=== PATIENT | female | born 1995 | race Two or more races ===

== ENCOUNTER 2020-03-22 06:30 | Emergency (ER) | payer BC ==
[~2020-03-22] VITALS: Ht 167.6 cm; Wt 117.0 kg
[2020-03-22 07:19] LABS: BASOPHILS # (AUTO) 0.1 X10'3 (0-0.2); BASOPHILS % (AUTO) 0.4 % (0-1); EOSINOPHILS # (AUTO) 0.2 X10'3 (0-0.9); EOSINOPHILS % (AUTO) 1.1 % (0-6); HEMATOCRIT 40.4 % (35.0-45.0); HEMOGLOBIN 13.7 g/dl (12.0-16.0); LYMPHOCYTES # (AUTO) 2.2 X10'3 (1.1-4.8); LYMPHOCYTES % (AUTO) 14.9 % (21-51); MEAN CORPUSCULAR HEMOGLOBIN 29.1 PG (27.0-31.0); MEAN CORPUSCULAR HGB CONC 33.9 g/dL (33.0-36.5); MEAN PLATELET VOLUME 8.7 FL (7.4-10.4); MONOCYTES # (AUTO) 1.2 X10'3 (0-0.9); NEUTROPHILS % (AUTO) 75.6 % (42-75); PLATELET COUNT 298 X10'3 (140-440); RED CELL DISTRIBUTION WIDTH 13.4 % (11.5-14.5); WHITE BLOOD COUNT 14.6 X10'3 (4.5-11.0)
[2020-03-22 07:23] LABS: CLARITY,URINE CLEAR (Clear); COLOR,URINE YELLOW (Yellow); GLUCOSE, URINE NEGATIVE (Neg); KETONES,URINE NEGATIVE (Neg); LEUKOCYTE ESTERASE ,URINE NEGATIVE (Neg); NITRITES, URINE NEGATIVE (Neg); OCCULT BLOOD,URINE MODERATE (Neg); PH,URINE 5.5 (4.8-8.0); PROTEIN,URINE NEGATIVE (Neg); UROBILINOGEN,URINE 0.2 E.U/dL (0.2-1.0)
[2020-03-22 07:24] LABS: URINE HCG NEGATIVE (NEG)
[2020-03-22 07:25] LABS: UA COLLECTION TYPE CLN CATCH MIDSTREAM
[2020-03-22 07:42] LABS: BACTERIA,URINE NONE SEEN /HPF (Neg); SQUAMOUS EPITHELIAL CELL,UR FEW /LPF (FEW); WBC,URINE 0-4 /HPF (0-4)
[2020-03-22 07:44] LABS: ALANINE AMINOTRANSFERASE 52 U/L (12-78); ALBUMIN 3.6 G/DL (3.4-5.0); ALBUMIN/GLOBULIN RATIO 0.8 (1.1-1.5); ALKALINE PHOSPHATASE 80 IU/L (46-116); ANION GAP 10 (8-16); ASPARTATE AMINO TRANSFERASE 22 U/L (10-37); BILIRUBIN,TOTAL 0.6 MG/DL (0.1-1.0); BLOOD UREA NITROGEN 10 MG/DL (7-18); BUN/CREATININE RATIO 14.5 (6.6-38.0); CALCIUM 8.5 MG/DL (8.5-10.1); CHLORIDE 105 MMOL/L (99-107); CREATININE 0.69 MG/DL (0.40-0.90); GLUCOSE 114 MG/DL (70-104); LIPASE 93 U/L (73-393); POTASSIUM 3.5 MMOL/L (3.5-5.1); SODIUM 139 MMOL/L (135-145); TOTAL CARBON DIOXIDE 23.7 MMOL/L (24-32); TOTAL PROTEIN 7.9 G/DL (6.4-8.2); eGFR > 90 ML/MIN
--- NOTE | 2020-03-22 09:04 | NUR ---
notified dr solares if we can move pt to overflow rehanger room for pelivic examin ,as per md pt need ct scan first then we can move the pt to overflow for peliv exam.
--- NOTE | 2020-03-22 09:34 | NUR ---
pt to ct scan.
--- NOTE | 2020-03-22 09:45 | NUR ---
PT CAME BACK FROM CT SCAN MOVED TO OVERFLOW FOR PELVIC EXAMINATION.
--- NOTE | 2020-03-22 09:56 | NUR ---
notified dr solares pt is in overflow ready for eaxam ,as per md he will let anaw when he is ready for exam for assistance.
[2020-03-22] MEDS ORDERED: metroNIDAZOLE 500mg tablet PO ONE (10:20)
[2020-03-22] MEDS ORDERED: ciprofloxacin 250mg tablet PO ONE (10:20)
--- NOTE | 2020-03-22 10:20 | NUR ---
assisted provider with pelvic examination,pt brought back to room 11.vitals stable will cont to monitor.
[2020-03-22] MEDS ORDERED: METR-159 PO (10:29)
[2020-03-22] MEDS ORDERED: CIPR-230 PO (10:29)
[2020-03-22 10:37] VITALS: BP 123/82
== END 2020-03-22 10:40 | disposition home or self-care (01) ==
LOC: ER 06:31
DX: K57.92 Diverticulitis of intestine, part unspecified, without perforation or abscess without bleeding (principal)
CPT/HCPCS: 36415; 74176; 80053; 81001; 81025; 83690; 85025; 99284; J3490